=== PATIENT | male | born 1955 | race Asian ===

== ENCOUNTER 2018-05-10 17:09 | Inpatient (IN) | payer BC ==
[~2018-05-10] VITALS: Ht 162.6 cm; Wt 55.3 kg
[2018-05-10] MEDS ORDERED: Isovue-300 100ml vial INJ PRN (17:30)
[2018-05-10] MEDS ORDERED: Ketorolac 30mg Inj IV ONE (17:30)
[2018-05-10] MEDS ORDERED: Morphine Sulfate 4mg/ml Inj (IV USE ONLY) IVP ONE (17:30)
[2018-05-10 18:42] LABS: BASOPHILS % (AUTO) 1.1 % (0.0-2.0); EOSINOPHILS % (AUTO) 0.3 % (0.0-3.0); HEMATOCRIT 44.9 % (42.0-52.0); HEMOGLOBIN 15.5 G/DL (14.2-18.0); LYMPHOCYTES % (AUTO) 8.3 % (20.0-45.0); MEAN CORPUSCULAR VOLUME 92 FL (80-99); MONOCYTES % (AUTO) 6.8 % (1.0-10.0); NEUTROPHILS % (AUTO) 83.5 % (45.0-75.0); PLATELET COUNT 187 K/UL (150-450); RED BLOOD COUNT 4.89 M/UL (4.70-6.10); RED CELL DISTRIBUTION WIDTH 11.1 % (11.6-14.8); WHITE BLOOD COUNT 10.8 K/UL (4.8-10.8)
[2018-05-10 18:43] VITALS: BP 120/82
[2018-05-10 18:47] LABS: APPEARANCE,URINE CLEAR; BILIRUBIN, URINE NEGATIVE (NEGATIVE); COLOR,URINE PALE YELLOW; GLUCOSE, URINE (UA) 2+ (NEGATIVE); KETONES,URINE 2+ (NEGATIVE); LEUKOCYTE ESTERASE ,URINE 1+ (NEGATIVE); NITRITE,URINE NEGATIVE (NEGATIVE); PH,URINE 6.5 (4.5-8.0); PROTEIN,URINE NEGATIVE (NEGATIVE); UROBILINOGEN,URINE NORMAL MG/DL (0.0-1.0)
[2018-05-10 18:54] LABS: ANION GAP 8 mmol/L (5-15); BLOOD UREA NITROGEN 8 mg/dL (7-18); CALCIUM 8.8 MG/DL (8.5-10.1); CARBON DIOXIDE 27 MMOL/L (21-32); CHLORIDE 101 MMOL/L (98-107); CREATININE 0.9 MG/DL (0.55-1.30); POTASSIUM 3.8 MMOL/L (3.5-5.1); SODIUM 136 MMOL/L (136-145)
[2018-05-10 18:58] LABS: ALANINE AMINOTRANSFERASE 46 U/L (12-78); ALBUMIN 3.3 G/DL (3.4-5.0); ALBUMIN/GLOBULIN RATIO 0.8 (1.0-2.7); ALKALINE PHOSPHATASE 68 U/L (46-116); ASPARTATE AMINO TRANSFERASE 26 U/L (15-37)
--- NOTE | 2018-05-10 19:20 | Emergency Room Report ---
History of Present Illness General Chief Complaint: Abdominal Pain Source: Patient Present Illness HPI Patient presents with 3 days of lower abdominal pain. Initially thought it was diverticulitis and treated with Augmentin and Flagyl. The pain has been constant and worsening. He's felt nauseated and lack of appetite. He is also felt feverish. He's been taking Advil which is helped the pain somewhat. When he is not moving about the pain is somewhat controlled but otherwise its 8-9/ 10. It's more in the right lower quadrant and nonradiating. He denies any vomiting or diarrhea. There is no dysuria. The patient was seen by his own doctor and given a dose of IV Rocephin and gentamicin earlier today. The pain worsened. The doctor performed an ultrasound and said the patient had appendicitis. He was sent here for reevaluation. Allegedly WBC was 11K. Colonoscopy 6 years ago. No dyspnea. In past had palpitations related to ASD. Alleges some surgical procedure. No recent palpitations. No HATCH or anxiety. Allergies: Coded Allergies: No Known Allergies (Unverified , 05/10/18) Patient History Past Medical History: see triage record Past Surgical History: other - ASD surgery Social History: Denies: smoking, alcohol use, drug use Social History Narrative here with [facility] [place] [facility] employee Reviewed Nursing Documentation: PMH: Agreed; PSxH: Agreed Nursing Documentation-PMH Past Medical History: No History, Except For Hx Cardiac Problems: Yes - heart surgery(ASD) Hx COPD: Yes Review of Systems All Other Systems: negative except mentioned in HPI Physical Exam Vital Signs Date Time Temp Pulse Resp B/P (MAP) Pulse Ox O2 Delivery O2 Flow Rate FiO2 05/10/18 17:17 99.7 105 16 118/76 94 Room Air 99.7 Sp02 EP Interpretation: reviewed, normal General Appearance: well appearing, no apparent distress, GCS 15 Head: normocephalic, atraumatic Eyes: bilateral eye normal inspection, bilateral eye PERRL ENT: moist mucus membranes Neck: supple Respiratory: lungs clear, normal breath sounds Cardiovascular #1: regular rate, rhythm Cardiovascular #2: 2+ radial (R) Gastrointestinal: normal inspection, normal bowel sounds, no mass, non- distended, no rebound, guarding - RLQ, tenderness Genitourinary: no CVA tenderness Musculoskeletal: back normal, gait/station normal, normal range of motion Neurologic: alert, oriented x3, grossly normal Psychiatric: mood/affect normal Skin: normal inspection, warm/dry Medical Decision Making Diagnostic Impression: Primary Impression: Diverticulitis Additional Impressions: Failure of outpatient treatment COPD (chronic obstructive pulmonary disease) Qualified Codes: J44.9 - Chronic obstructive pulmonary disease, unspecified ASD (atrial septal defect) ER Course Patient with RLQ pain for 3 days. DDx: diverticulitis, appendicitis, colitis, UTI amongst others. Recent use of antibiotics stepped up to IV today with worsened pain. Told by PMD has appendicitis by ultrasound. History slightly against this. Needs evaluation with labs and CT. Treatment with IV hydration and analgesia. Had dose of rocephin and gent earlier today. Refused morphine because others told him it would be too strong. Requested tylenol also for headache. Labs with leukocytosis (by history slightly improved). Slightly elevated glucose. CT with colitis vs diverticulitis with stranding. No perf. Possible mass. Patient wants to sign out AMA. Discussion with family. Agree to stay after resolution regarding insurance (and warning by ERMD). Reported return of pain. Again refusing analgesia. Wants to eat. Discussed with Dr. Demarco for consult in AM. Admit med Dr. Shanks. Laboratory Tests Test 05/10/18 18:28 White Blood Count 10.8 K/UL (4.8-10.8) Red Blood Count 4.89 M/UL (4.70-6.10) Hemoglobin 15.5 G/DL (14.2-18.0) Hematocrit 44.9 % (42.0-52.0) Mean Corpuscular Volume 92 FL (80-99) Mean Corpuscular Hemoglobin 31.7 PG (27.0-31.0) H Mean Corpuscular Hemoglobin Concent 34.6 G/DL (32.0-36.0) Red Cell Distribution Width 11.1 % (11.6-14.8) L Platelet Count 187 K/UL (150-450) Mean Platelet Volume 5.7 FL (6.5-10.1) L Neutrophils (%) (Auto) 83.5 % (45.0-75.0) H Lymphocytes (%) (Auto) 8.3 % (20.0-45.0) L Monocytes (%) (Auto) 6.8 % (1.0-10.0) Eosinophils (%) (Auto) 0.3 % (0.0-3.0) Basophils (%) (Auto) 1.1 % (0.0-2.0) Prothrombin Time 10.3 SEC (9.30-11.50) Prothrombin Time INR 1.0 (0.9-1.1) PTT 33 SEC (23-33) Urine Color Pale yellow Urine Appearance Clear Urine pH 6.5 (4.5-8.0) Urine Specific [place] 1.005 (1.005-1.035) Urine Protein Negative (NEGATIVE) Urine Glucose (UA) 2+ (NEGATIVE) H Urine Ketones 2+ (NEGATIVE) H Urine Occult Blood Negative (NEGATIVE) Urine Nitrite Negative (NEGATIVE) Urine Bilirubin Negative (NEGATIVE) Urine Urobilinogen Normal MG/DL (0.0-1.0) Urine Leukocyte Esterase 1+ (NEGATIVE) H Urine RBC 0-2 /HPF (0 - 0) H Urine WBC 2-4 /HPF (0 - 0) Urine Squamous Epithelial Cells None /LPF (NONE/OCC) Urine Bacteria Few /HPF (NONE) Sodium Level 136 MMOL/L (136-145) Potassium Level 3.8 MMOL/L (3.5-5.1) Chloride Level 101 MMOL/L (98-107) Carbon Dioxide Level 27 MMOL/L (21-32) Anion Gap 8 mmol/L (5-15) Blood Urea Nitrogen 8 mg/dL (7-18) Creatinine 0.9 MG/DL (0.55-1.30) Estimate Glomerular Filtration Rate > 60 mL/min (>60) Glucose Level 126 MG/DL (74-106) H Calcium Level 8.8 MG/DL (8.5-10.1) Total Bilirubin 1.0 MG/DL (0.2-1.0) Aspartate Amino Transferase (AST) 26 U/L (15-37) Alanine Aminotransferase (ALT) 46 U/L (12-78) Alkaline Phosphatase 68 U/L (46-116) Troponin I 0.000 ng/mL (0.000-0.056) Total Protein 7.3 G/DL (6.4-8.2) Albumin 3.3 G/DL (3.4-5.0) L Globulin 4.0 g/dL Albumin/Globulin Ratio 0.8 (1.0-2.7) L Lipase 119 U/L (73-393) CT/MRI/US Diagnostic Results CT/MRI/US Diagnostic Results : Imaging Test Ordered: abd Impression colitis vs diverticulitis + stranding - COPD - possible mass Last Vital Signs Date Time Temp Pulse Resp B/P (MAP) Pulse Ox O2 Delivery O2 Flow Rate FiO2 05/10/18 23:02 97.9 72 20 112/63 (79) 96 97.9 05/10/18 22:48 Room Air Status: improved Disposition: HOME, SELF-CARE Condition: Serious Referrals: NON PHYSICIAN (PCP) Kobe Tanner M.D. May 10, 2018 19:20
[2018-05-10] MEDS ORDERED: BREO ELLIPTA 21 EACH IH (19:31)
[2018-05-10 20:33] VITALS: BP 108/62
[2018-05-10 22:14] VITALS: BP 125/79
[2018-05-10 23:02] VITALS: BP 112/63
[2018-05-11] MEDS ORDERED: Morphine Sulfate 2mg/ml Inj(IV/IM USE ONLY) IVP PRN ×2 (01:30→07:15)
[2018-05-11] MEDS ORDERED: D5 1/2NS 1,000 ML IV SCH ×2 (02:00→08:00)
[2018-05-11 04:00] VITALS: BP 112/64
[2018-05-11] MEDS ORDERED: Nitroglycerin Subl 0.4mg tab SL PRN (07:15)
[2018-05-11] MEDS ORDERED: Mylanta II UD 30ml ORAL PRN (07:15)
[2018-05-11] MEDS ORDERED: LORazepam Inj 2mg/ml 1ml IV PRN (07:15)
[2018-05-11] MEDS ORDERED: Metoclopramide 10mg/2ml Inj IVP PRN (07:15)
[2018-05-11] MEDS ORDERED: Miralax 17gm pkt ORAL PRN (07:15)
[2018-05-11] MEDS ORDERED: Promethazine HCl 12.5 MG in NS 55 ML IV PRN (07:15)
[2018-05-11 07:44] LABS: BASOPHILS % (AUTO) 0.3 % (0.0-2.0); EOSINOPHILS % (AUTO) 1.8 % (0.0-3.0); HEMATOCRIT 39.9 % (42.0-52.0); HEMOGLOBIN 13.9 G/DL (14.2-18.0); LYMPHOCYTES % (AUTO) 9.7 % (20.0-45.0); MEAN CORPUSCULAR VOLUME 91 FL (80-99); MONOCYTES % (AUTO) 7.4 % (1.0-10.0); NEUTROPHILS % (AUTO) 80.8 % (45.0-75.0); PLATELET COUNT 171 K/UL (150-450); RED CELL DISTRIBUTION WIDTH 10.7 % (11.6-14.8); WHITE BLOOD COUNT 7.6 K/UL (4.8-10.8)
[2018-05-11 07:54] LABS: ANION GAP 9 mmol/L (5-15); BLOOD UREA NITROGEN 7 mg/dL (7-18); CALCIUM 8.6 MG/DL (8.5-10.1); CARBON DIOXIDE 24 MMOL/L (21-32); CHLORIDE 106 MMOL/L (98-107); CREATININE 0.8 MG/DL (0.55-1.30); POTASSIUM 3.3 MMOL/L (3.5-5.1); SODIUM 139 MMOL/L (136-145)
[2018-05-11 08:00] VITALS: BP 111/60
--- NOTE | 2018-05-11 08:13 | Consultation ---
History of Present Illness General Date patient seen: May 11, 2018 Chief Complaint: Abdominal Pain Reason for Consultation: Diverticulitis Present Illness HPI Mr. Hidalgo is a 62 yo male with PMHx of ASD repair, and COPD who presented with 3 days of abdominal pain. The pain is located in [facility] RLU. He had some diarrhea last night after drinking contrast but this has resolved. He was seen by his own MD and was started on Augmentin and flagyl but the patient was not getting better so he was sent to the ED. Prior to coming to the ED he was given Ceftriaxone and Gentamycin. He apparently had a leukocytosis of 11 and he says he felt feverish. Now he reports the pain is in his RLQ is almost gone. He has had no sick contacts. Last travel was to [place] 1 year ago. he did not get sick on this trip. In the ED he had a CT scan that apparently showed diverticulitis and possible colitis. I talked to the radiologist and he told me that the report is pending but while there is some inflammation the is no district diverticula. The patient has been afebrile and had a mild leukocytosis 10.8 which had decreased to 7.6. PMHx/PSHx Chronic Bronchitis ASD - S/P Repair SocHx Denies E/T/D FamHx No GI Cancer Allergies: Coded Allergies: No Known Allergies (Unverified , 05/10/18) Medication History Miscellaneous Medications Fluticasone/Vilanterol (Breo Ellipta 200-25 Mcg INH), 1 EACH IH, (Reported) Patient History Healthcare decision maker Resuscitation status Full Code Advanced Directive on File No Review of Systems All Other Systems: negative except mentioned in HPI Physical Exam Last 24 Hour Vital Signs Date Time Temp Pulse Resp B/P (MAP) Pulse Ox O2 Delivery O2 Flow Rate FiO2 05/11/18 04:00 98.8 73 20 112/64 (80) 95 98.8 05/10/18 23:02 97.9 72 20 112/63 (79) 96 97.9 05/10/18 22:48 Room Air 05/10/18 22:14 98.7 81 15 125/79 99 Room Air 98.7 05/10/18 20:33 98.7 77 16 108/62 99 Room Air 98.7 05/10/18 18:43 98.7 89 16 120/82 94 Room Air 98.7 05/10/18 18:00 98.7 05/10/18 17:30 99.7 05/10/18 17:30 99.7 05/10/18 17:17 99.7 105 16 118/76 94 Room Air 99.7 Intake and Output 05/10/18 05/11/18 19:00 07:00 Intake Total 2340 ml Balance 2340 ml Intake IV Total 2340 ml # Voids 1 3 # Bowel Movements 1 Laboratory Tests Test 05/10/18 18:28 05/11/18 06:40 White Blood Count 10.8 K/UL (4.8-10.8) 7.6 K/UL (4.8-10.8) Red Blood Count 4.89 M/UL (4.70-6.10) 4.40 M/UL (4.70-6.10) L Hemoglobin 15.5 G/DL (14.2-18.0) 13.9 G/DL (14.2-18.0) L Hematocrit 44.9 % (42.0-52.0) 39.9 % (42.0-52.0) L Mean Corpuscular Volume 92 FL (80-99) 91 FL (80-99) Mean Corpuscular Hemoglobin 31.7 PG (27.0-31.0) H 31.6 PG (27.0-31.0) H Mean Corpuscular Hemoglobin Concent 34.6 G/DL (32.0-36.0) 34.8 G/DL (32.0-36.0) Red Cell Distribution Width 11.1 % (11.6-14.8) L 10.7 % (11.6-14.8) L Platelet Count 187 K/UL (150-450) 171 K/UL (150-450) Mean Platelet Volume 5.7 FL (6.5-10.1) L 6.3 FL (6.5-10.1) L Neutrophils (%) (Auto) 83.5 % (45.0-75.0) H 80.8 % (45.0-75.0) H Lymphocytes (%) (Auto) 8.3 % (20.0-45.0) L 9.7 % (20.0-45.0) L Monocytes (%) (Auto) 6.8 % (1.0-10.0) 7.4 % (1.0-10.0) Eosinophils (%) (Auto) 0.3 % (0.0-3.0) 1.8 % (0.0-3.0) Basophils (%) (Auto) 1.1 % (0.0-2.0) 0.3 % (0.0-2.0) Prothrombin Time 10.3 SEC (9.30-11.50) Prothromb Time International Ratio 1.0 (0.9-1.1) Activated Partial Thromboplast Time 33 SEC (23-33) Urine Color Pale yellow Urine Appearance Clear Urine pH 6.5 (4.5-8.0) Urine Specific [place] 1.005 (1.005-1.035) Urine Protein Negative (NEGATIVE) Urine Glucose (UA) 2+ (NEGATIVE) H Urine Ketones 2+ (NEGATIVE) H Urine Occult Blood Negative (NEGATIVE) Urine Nitrite Negative (NEGATIVE) Urine Bilirubin Negative (NEGATIVE) Urine Urobilinogen Normal MG/DL (0.0-1.0) Urine Leukocyte Esterase 1+ (NEGATIVE) H Urine RBC 0-2 /HPF (0 - 0) H Urine WBC 2-4 /HPF (0 - 0) Urine Squamous Epithelial Cells None /LPF (NONE/OCC) Urine Bacteria Few /HPF (NONE) Sodium Level 136 MMOL/L (136-145) 139 MMOL/L (136-145) Potassium Level 3.8 MMOL/L (3.5-5.1) 3.3 MMOL/L (3.5-5.1) L Chloride Level 101 MMOL/L (98-107) 106 MMOL/L (98-107) Carbon Dioxide Level 27 MMOL/L (21-32) 24 MMOL/L (21-32) Anion Gap 8 mmol/L (5-15) 9 mmol/L (5-15) Blood Urea Nitrogen 8 mg/dL (7-18) 7 mg/dL (7-18) Creatinine 0.9 MG/DL (0.55-1.30) 0.8 MG/DL (0.55-1.30) Estimat Glomerular Filtration Rate > 60 mL/min (>60) > 60 mL/min (>60) Glucose Level 126 MG/DL (74-106) H 111 MG/DL (74-106) H Calcium Level 8.8 MG/DL (8.5-10.1) 8.6 MG/DL (8.5-10.1) Total Bilirubin 1.0 MG/DL (0.2-1.0) Aspartate Amino Transf (AST/SGOT) 26 U/L (15-37) Alanine Aminotransferase (ALT/SGPT) 46 U/L (12-78) Alkaline Phosphatase 68 U/L (46-116) Troponin I 0.000 ng/mL (0.000-0.056) Total Protein 7.3 G/DL (6.4-8.2) Albumin 3.3 G/DL (3.4-5.0) L Globulin 4.0 g/dL Albumin/Globulin Ratio 0.8 (1.0-2.7) L Lipase 119 U/L (73-393) Height (Feet): 5 Height (Inches): 4.00 Weight (Pounds): 122 Medications Current Medications Medications (Trade) Dose Ordered Sig/Rosa Route PRN Reason Start Time Stop Time Status Last Admin Dose Admin Acetaminophen (Tylenol) 650 mg Q4H PRN ORAL fever 05/11/18 07:15 06/10/18 07:14 UNV Al Hydroxide/Mg Hydroxide (Mylanta II) 30 ml Q6H PRN ORAL dyspepsia 05/11/18 07:15 06/10/18 07:14 UNV Barium Sulfate (Readi-Cat 2) 450 ml NOW PRN ORAL Radiology Procedure 05/10/18 17:30 05/12/18 17:25 Dextrose (Dextrose 50%) STAT PRN IV Hypoglycemia 05/11/18 07:15 06/10/18 07:14 UNV Dextrose/Sodium Chloride 1,000 ml @ 60 mls/hr [id number] IV 05/11/18 02:00 06/10/18 01:59 05/11/18 02:34 Dextrose/Sodium Chloride 1,000 ml @ 75 mls/hr [id number] IV 05/11/18 07:08 06/10/18 07:07 UNV Diphenhydramine HCl (Benadryl) 25 mg Q6H PRN ORAL Itching/Pruritis 05/11/18 07:15 06/10/18 07:14 UNV Heparin Sodium (Porcine) (Heparin 5000 units/ml) 5,000 units EVERY 12 HOURS SUBQ 05/11/18 09:00 06/10/18 08:59 UNV Iopamidol (Isovue-300 100ml) 100 ml NOW PRN INJ Radiology Procedure 05/10/18 17:30 Lorazepam (Ativan 2mg/ml 1ml) 1 mg EVERY 4 HOURS PRN IV agitation 05/11/18 07:15 05/18/18 07:14 UNV Metoclopramide HCl (Reglan) 10 mg EVERY 6 HOURS PRN IVP servere nauasea 05/11/18 07:15 06/10/18 07:14 UNV Morphine Sulfate (Morphine Sulfate) 2 mg EVERY 4 HOURS PRN IVP severe Pain (Pain Scale 7-10) 05/11/18 07:15 05/18/18 07:14 UNV Morphine Sulfate (Morphine Sulfate) 2 mg Q4H PRN IVP For Pain 05/11/18 01:30 05/18/18 01:29 Nitroglycerin (Ntg) 0.4 mg Q5M X 3 DOSES PRN SL Prn Chest Pain 05/11/18 07:15 06/10/18 07:14 UNV Ondansetron HCl (Zofran) 4 mg Q6H PRN IVP Nausea & Vomiting 05/11/18 07:15 06/10/18 07:14 UNV Pantoprazole (Protonix) 40 mg DAILY IV 05/11/18 09:00 06/10/18 08:59 UNV Polyethylene Glycol (Miralax) 17 gm HSPRN PRN ORAL Constipation 05/11/18 07:15 06/10/18 07:14 UNV Promethazine HCl 12.5 mg/Sodium Chloride 55.5 ml @ 110 mls/hr Q6H PRN IV Refractory N/V 05/11/18 07:15 06/10/18 07:14 UNV Promethazine HCl 25 mg/Sodium Chloride 56 ml @ 110 mls/hr Q6H PRN IV Refractory N/V 05/11/18 07:15 06/10/18 07:14 UNV Temazepam (Restoril) 15 mg HSPRN PRN ORAL Insomnia 05/11/18 07:15 05/18/18 07:14 UNV Objective Narrative Gen: NAD, well appearing, alert HEENT: NCAT, MMM, EOMI, PERRL, No Oral lesion, no scleral icterus NECK: full range of motion, supple, no meningismus, No LAD, No JVD LUNGS: CTAB, No W/C, No Accessory muscle use CARDS: RRR, S1, S2, No M/R/G,~ ABD: Soft, TTP RLQ with deep palpation, ND, No R/G, + BS, No HSM, No Masses Ext: C/C/E, Pulses 2+ B/L (DP, Rad): : Deferred NEURO: A/O x 4, Strength and Sensation Grossly intact PSYCH: mood/affect normal SKIN: warm/dry, No rashes Assessment/Plan Assessment/Plan 62 yo male with PMHx of ASD repair, and COPD who presented with 3 days of abdominal pain, diarrhea and nausea (no vomiting). #Abdominal Pain Likely CA vs colitis - Pain and mild leukocytosis responded to IV Abx - CT 05/10/18 - CA vs colitis PLAN: - Will start course of Abx for possible colitis with Ciprofloxacin as he had increased WBCs and fever with colitis. - Would treat for 7 days with Ciprofloxacin 500mg BID. End date 05/17/18 - Reasonable to D/C the patient from and ID perspective - Stool studies - Would recommend work up of Cancer given CT results - Supportive care Thank you for consulting us for the care of this patient. We will continue to follow with you. Kobe Woodward M.D. May 11, 2018 08:13
[2018-05-11] MEDS: Heparin 5000 units/ml inj SUBQ SCH ×3 (09:00→20:35)
[2018-05-11] MEDS: Pantoprazole Inj IV SCH (09:03)
[2018-05-11] MEDS ORDERED: Promethazine HCl 25 MG in NS 55 ML IV PRN (10:00)
--- NOTE | 2018-05-11 10:36 | Diagnostic Imaging Report ---
Indication: Chest pain Technique: One view of the chest Comparison: none Findings: Retrocardiac opacity likely reflects bronchiectatic changes demonstrated on recent CT scan. There is mild thoracic scoliotic deformity. The heart is enlarged. The remainder of the lungs and pleural spaces are clear. Impression: Left retrocardiac opacity, likely reflecting bronchiectatic changes seen on recent CT Cardiomegaly No definite acute process
--- NOTE | 2018-05-11 11:43 | Diagnostic Imaging Report ---
Clinical Indication: Right lower quadrant abdominal pain x3 days Technique: Patient given oral contrast. IV administration nonionic contrast. Venous phase spiral acquisition obtained through the abdomen and pelvis. Multiplanar reconstructions were generated. Total dose length product 506.67 mGycm. CTDIvol(s) 10.18 mGy. Dose reduction achieved using automated exposure control Comparison: none Findings: The appendix is normal. There is wall thickening of the proximal ascending colon as well as to a slight extent the terminal ileum, with considerable infiltration of the pericolonic fat. Prominent lymph nodes are seen in the vicinity. No definite diverticulosis is demonstrated. No small bowel distention. No free or loculated intraperitoneal gas or fluid is evident. The distal esophagus, stomach, duodenum are unremarkable. The liver demonstrates scattered subcentimeter low-attenuation lesions which are too small to characterize. The gallbladder, bile ducts, pancreas, spleen, adrenals are unremarkable. The kidneys demonstrate bilateral cysts, as well as subcentimeter low-attenuation lesions which are too small to characterize. The bladder is distended. The prostate is somewhat prominent. The lung bases demonstrate considerable bronchiectasis at the left lung base. The heart is mildly enlarged. Scarring and atelectasis is seen at the right lung base. The bones demonstrate mild anterior wedging of the T12 vertebral body Impression: Wall thickening of the proximal ascending colon and possibly the terminal ileum, considerable infiltration of the pericolonic fat and prominent regional lymph nodes. This could indicate focal inflammatory colitis, either infectious or noninfectious, or diverticulitis due to an occult diverticulum. Alternatively, findings could represent colonic neoplasm. Follow-up CT after resolution of acute process or endoscopy should be considered Cardiomegaly Left basilar pulmonary bronchiectasis Mild anterior wedging of the T12 vertebral body. This may be developmental or could indicate a compression fracture of indeterminate age Subcentimeter low-attenuation liver lesions, too small to characterize Bilateral renal cysts. Bilateral subcentimeter renal low-attenuation lesions which are too small to characterize This agrees with the preliminary interpretation provided overnight by [facility] teleradiology service. Findings also discussed by phone with Dr. Woodward at 1137 on 05/21/[address] scanner at [facility] is accredited by the [employer] and the scans are performed using protocols designed to limit radiation exposure to as low as reasonably achievable to attain images of sufficient resolution adequate for diagnostic evaluation.
[2018-05-11 12:00] VITALS: BP 132/63
[2018-05-11] MEDS ORDERED: Ciprofloxacin 500mg tab ORAL SCH (12:00)
[2018-05-11] MEDS ORDERED: cefTRIAXone 1 GM in D5W 55 ML IVPB ONE (12:15)
--- NOTE | 2018-05-11 12:45 | Diagnostic Imaging Report ---
Indication: Right lower quadrant abdominal pain, nausea, anorexia Technique: Cornelius-scale and duplex images of the upper abdomen were obtained Comparison: Reference made to CT scan 05/10/2018 Findings: Gallbladder is unremarkable, without stones, wall thickening, nor pericholecystic fluid. Sonographic Jeong's sign is negative. Common bile duct measures 5 mm in diameter. No intrahepatic biliary ductal dilatation. Liver demonstrates normal echogenicity, no focal abnormality. Portal vein and hepatic veins are patent. Pancreas is unremarkable. Spleen is unremarkable. Left kidney measures 10.8 cm in length. Right kidney measures 12.6 cm length. Both kidneys demonstrate normal echogenicity. There is no hydronephrosis. There are bilateral renal cysts . There is what appears to be a possible solid mass at the upper pole of the left kidney. However, this is probably artifactual as recent CT demonstrates normal parenchyma and a tiny 3 mm cyst in this area. Non-aneurysmal abdominal aorta . Impression: Negative for gallstones or dilated ducts Bilateral renal cysts
[2018-05-11] MEDS: Piperacillin/Tazobactam 3.375 GM in D5W 110 ML IV SCH ×2 (13:34→20:35)
[2018-05-11] MEDS: D5 1/2NS 1,000 ML IV SCH ×2 (13:34→23:30)
[2018-05-11] MEDS ORDERED: Piperacillin/Tazobactam 3.375 GM in NS 110 ML IVPB SCH (14:00)
--- NOTE | 2018-05-11 15:12 | Consultation ---
History of Present Illness General Date patient seen: May 11, 2018 Chief Complaint: Abdominal Pain Reason for Consultation: Diverticulitis Present Illness HPI 62 year old male with hx of COPD, ASD presented to ER with CC of 3 days of lower abdominal pain. The pain has been constant and worsening. He's felt nauseated and lack of appetite. He is also felt feverish. It's more in the right lower quadrant and nonradiating. He denies any vomiting or diarrhea. He had a CT of abdomen in ER showing colitis. He is admitted to medical floor for further evaluation. Allergies: Coded Allergies: No Known Allergies (Unverified , 05/10/18) Medication History Miscellaneous Medications Fluticasone/Vilanterol (Breo Ellipta 200-25 Mcg INH), 1 EACH IH, (Reported) Patient History Healthcare decision maker Resuscitation status Full Code Advanced Directive on File No Past Medical/Surgical History Past Medical/Surgical History: (1) ASD (atrial septal defect) (2) COPD (chronic obstructive pulmonary disease) Review of Systems All Other Systems: negative except mentioned in HPI Physical Exam General Appearance: WD/WN, no apparent distress Lines, tubes and drains: peripheral HEENT: normocephalic, atraumatic Neck: non-tender, normal alignment Respiratory/Chest: chest wall non-tender, lungs clear Cardiovascular/Chest: normal rate Abdomen: normal bowel sounds, non tender Genitourinary/Rectal: normal genital exam, normal rectal exam Extremities: normal range of motion Skin Exam: normal pigmentation 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 normal Last 24 Hour Vital Signs Date Time Temp Pulse Resp B/P (MAP) Pulse Ox O2 Delivery O2 Flow Rate FiO2 05/11/18 12:00 98.9 75 21 132/63 (86) 98 98.9 05/11/18 08:15 Room Air 05/11/18 08:00 98.1 80 20 111/60 (77) 97 98.1 05/11/18 04:00 98.8 73 20 112/64 (80) 95 98.8 05/10/18 23:02 97.9 72 20 112/63 (79) 96 97.9 05/10/18 22:48 Room Air 05/10/18 22:23 98.7 81 15 125/79 99 Room Air 98.7 05/10/18 22:14 98.7 81 15 125/79 99 Room Air 98.7 05/10/18 20:33 98.7 77 16 108/62 99 Room Air 98.7 05/10/18 18:43 98.7 89 16 120/82 94 Room Air 98.7 05/10/18 18:00 98.7 05/10/18 17:30 99.7 05/10/18 17:30 99.7 05/10/18 17:17 99.7 105 16 118/76 94 Room Air 99.7 Intake and Output 05/10/18 05/11/18 19:00 07:00 Intake Total 2340 ml Balance 2340 ml Intake IV Total 2340 ml # Voids 1 3 # Bowel Movements 1 Laboratory Tests Test 05/10/18 18:28 05/11/18 06:40 White Blood Count 10.8 K/UL (4.8-10.8) 7.6 K/UL (4.8-10.8) Red Blood Count 4.89 M/UL (4.70-6.10) 4.40 M/UL (4.70-6.10) L Hemoglobin 15.5 G/DL (14.2-18.0) 13.9 G/DL (14.2-18.0) L Hematocrit 44.9 % (42.0-52.0) 39.9 % (42.0-52.0) L Mean Corpuscular Volume 92 FL (80-99) 91 FL (80-99) Mean Corpuscular Hemoglobin 31.7 PG (27.0-31.0) H 31.6 PG (27.0-31.0) H Mean Corpuscular Hemoglobin Concent 34.6 G/DL (32.0-36.0) 34.8 G/DL (32.0-36.0) Red Cell Distribution Width 11.1 % (11.6-14.8) L 10.7 % (11.6-14.8) L Platelet Count 187 K/UL (150-450) 171 K/UL (150-450) Mean Platelet Volume 5.7 FL (6.5-10.1) L 6.3 FL (6.5-10.1) L Neutrophils (%) (Auto) 83.5 % (45.0-75.0) H 80.8 % (45.0-75.0) H Lymphocytes (%) (Auto) 8.3 % (20.0-45.0) L 9.7 % (20.0-45.0) L Monocytes (%) (Auto) 6.8 % (1.0-10.0) 7.4 % (1.0-10.0) Eosinophils (%) (Auto) 0.3 % (0.0-3.0) 1.8 % (0.0-3.0) Basophils (%) (Auto) 1.1 % (0.0-2.0) 0.3 % (0.0-2.0) Prothrombin Time 10.3 SEC (9.30-11.50) Prothromb Time International Ratio 1.0 (0.9-1.1) Activated Partial Thromboplast Time 33 SEC (23-33) Urine Color Pale yellow Urine Appearance Clear Urine pH 6.5 (4.5-8.0) Urine Specific [place] 1.005 (1.005-1.035) Urine Protein Negative (NEGATIVE) Urine Glucose (UA) 2+ (NEGATIVE) H Urine Ketones 2+ (NEGATIVE) H Urine Occult Blood Negative (NEGATIVE) Urine Nitrite Negative (NEGATIVE) Urine Bilirubin Negative (NEGATIVE) Urine Urobilinogen Normal MG/DL (0.0-1.0) Urine Leukocyte Esterase 1+ (NEGATIVE) H Urine RBC 0-2 /HPF (0 - 0) H Urine WBC 2-4 /HPF (0 - 0) Urine Squamous Epithelial Cells None /LPF (NONE/OCC) Urine Bacteria Few /HPF (NONE) Sodium Level 136 MMOL/L (136-145) 139 MMOL/L (136-145) Potassium Level 3.8 MMOL/L (3.5-5.1) 3.3 MMOL/L (3.5-5.1) L Chloride Level 101 MMOL/L (98-107) 106 MMOL/L (98-107) Carbon Dioxide Level 27 MMOL/L (21-32) 24 MMOL/L (21-32) Anion Gap 8 mmol/L (5-15) 9 mmol/L (5-15) Blood Urea Nitrogen 8 mg/dL (7-18) 7 mg/dL (7-18) Creatinine 0.9 MG/DL (0.55-1.30) 0.8 MG/DL (0.55-1.30) Estimat Glomerular Filtration Rate > 60 mL/min (>60) > 60 mL/min (>60) Glucose Level 126 MG/DL (74-106) H 111 MG/DL (74-106) H Calcium Level 8.8 MG/DL (8.5-10.1) 8.6 MG/DL (8.5-10.1) Total Bilirubin 1.0 MG/DL (0.2-1.0) Aspartate Amino Transf (AST/SGOT) 26 U/L (15-37) Alanine Aminotransferase (ALT/SGPT) 46 U/L (12-78) Alkaline Phosphatase 68 U/L (46-116) Troponin I 0.000 ng/mL (0.000-0.056) Total Protein 7.3 G/DL (6.4-8.2) Albumin 3.3 G/DL (3.4-5.0) L Globulin 4.0 g/dL Albumin/Globulin Ratio 0.8 (1.0-2.7) L Lipase 119 U/L (73-393) Height (Feet): 5 Height (Inches): 4.00 Weight (Pounds): 122 Medications Current Medications Medications (Trade) Dose Ordered Sig/Rosa Route PRN Reason Start Time Stop Time Status Last Admin Dose Admin Acetaminophen (Tylenol) 650 mg Q4H PRN ORAL fever 05/11/18 07:15 06/10/18 07:14 Dextrose (Dextrose 50%) 25 ml STAT PRN IV Hypoglycemia 05/11/18 07:15 06/10/18 07:14 Dextrose (Dextrose 50%) 50 ml STAT PRN IV Hypoglycemia 05/11/18 08:30 06/10/18 08:29 Dextrose/Sodium Chloride 1,000 ml @ 100 mls/hr Q10H IV 05/11/18 13:30 06/10/18 13:29 05/11/18 13:34 Diphenhydramine HCl (Benadryl) 25 mg Q6H PRN ORAL Itching/Pruritis 05/11/18 07:15 06/10/18 07:14 Heparin Sodium (Porcine) (Heparin 5000 units/ml) 5,000 units EVERY 12 HOURS SUBQ 05/11/18 09:00 06/10/18 08:59 Lorazepam (Ativan 2mg/ml 1ml) 1 mg EVERY 4 HOURS PRN IV agitation 05/11/18 07:15 05/18/18 07:14 Morphine Sulfate (Morphine Sulfate) 2 mg EVERY 4 HOURS PRN IVP severe Pain (Pain Scale 7-10) 05/11/18 07:15 05/18/18 07:14 Nitroglycerin (Ntg) 0.4 mg Q5M X 3 DOSES PRN SL Prn Chest Pain 05/11/18 07:15 06/10/18 07:14 Ondansetron HCl (Zofran) 4 mg Q6H PRN IVP Nausea & Vomiting 05/11/18 07:15 06/10/18 07:14 Pantoprazole (Protonix) 40 mg DAILY IV 05/11/18 09:00 06/10/18 08:59 05/11/18 09:03 Piperacillin Sod/ Tazobactam Sod 3.375 gm/Dextrose 110 ml @ 27.5 mls/hr EVERY 8 HOURS IV 05/11/18 14:00 05/16/18 13:59 05/11/18 13:34 Polyethylene Glycol (Miralax) 17 gm HSPRN PRN ORAL Constipation 05/11/18 07:15 06/10/18 07:14 Promethazine HCl 25 mg/Sodium Chloride 56 ml @ 110 mls/hr Q6H PRN IV Refractory N/V 05/11/18 10:00 06/10/18 09:59 Temazepam (Restoril) 15 mg HSPRN PRN ORAL Insomnia 05/11/18 21:00 05/18/18 20:59 Assessment/Plan Problem List: (1) colitis (2) Failure of outpatient treatment ICD Codes: Z78.9 - Other specified health status SNOMED: 097259099 (3) COPD (chronic obstructive pulmonary disease) ICD Codes: J44.9 - Chronic obstructive pulmonary disease, unspecified SNOMED: 19611398 (4) ASD (atrial septal defect) ICD Codes: Q21.1 - Atrial septal defect SNOMED: 47596392 Assessment/Plan NPO IV fluids stool for C-diff check wbc check electrolytes symptomatic treatment Indio Lobo MD May 11, 2018 15:12
--- NOTE | 2018-05-11 15:30 | Consultation ---
History of Present Illness General Date patient seen: May 11, 2018 Chief Complaint: Abdominal Pain Reason for Consultation: Diverticulitis Present Illness HPI 62 year old male otherwise healthy presented to ED with complaints of worsening abdominal pain. States pain started 3 days ago and was initially vague generalized pain which has since localized to right lower and mid abdominal as cramping pain. Pain described as 6-8/10 without radiation. Associated nausea but no emesis. Feels constipated since onset. Came to ED for evaluation since pain not improving. No similar symptoms prior. Last colonoscopy 6 years ago and benign polyps removed. In ED had CT which demonstrated right sided colitis. Surgery called to evaluate. patient seen, chart reviewed, patient examined. Allergies: Coded Allergies: No Known Allergies (Unverified , 05/10/18) Medication History Miscellaneous Medications Fluticasone/Vilanterol (Breo Ellipta 200-25 Mcg INH), 1 EACH IH, (Reported) Patient History History Provided By: Patient, Medical Record, PMD Healthcare decision maker Resuscitation status Full Code Advanced Directive on File No Past Medical/Surgical History Past Medical/Surgical History: (1) Failure of outpatient treatment (2) Diverticulitis (3) COPD (chronic obstructive pulmonary disease) (4) ASD (atrial septal defect) (5) colitis Review of Systems Constitutional: Denies: no symptoms, see HPI, chills, sweats, fever, malaise, weakness, other Eye: Denies: no symptoms, see HPI, eye pain, blurred vision, tearing, double vision, nose pain, nose congestion, acuity changes, discharge, other ENT: Denies: no symptoms, see HPI, ear pain, ear discharge, nose pain, nose congestion, throat pain, throat swelling, mouth pain, hearing loss, nasal discharge, other Respiratory: Denies: no symptoms, see HPI, cough, orthopnea, shortness of breath, stridor, wheezing, [place], sputum, other Gastrointestinal: Reports: abdominal pain, constipation Genitourinary: Denies: no symptoms, see HPI, discharge, dysuria, frequency, hematuria, pain, retention, incontinence, urgency, vag bleed/dc, other Musculoskeletal: Denies: no symptoms, see HPI, back pain, gout, joint pain, joint swelling, muscle pain, muscle stiffness, other Skin: Denies: no symptoms, see HPI, rash, change in color, change in hair/nails , dryness, lesions, other Psychiatric: Denies: no symptoms, see HPI, prior hx, anxiety, depressed feelings, emotional problems, SI, HI, hallucinations, other Neurological: Denies: no symptoms, see HPI, headache, numbness, paresthesia, seizure, tingling, tremors, focal weakness, syncope, dizziness, other Endocrine: Denies: no symptoms, see HPI, excessive sweating, flushing, intolerance to temperature, increased thirst, increased urine, unexplained weight loss, other Hematologic/Lymphatic: Denies: no symptoms, see HPI, anemia, blood clots, easy bleeding, easy bruising, swollen glands, diathesis, other Physical Exam General Appearance: no apparent distress, alert Lines, tubes and drains: peripheral HEENT: normocephalic, atraumatic, mucous membranes moist, PERRL Neck: supple, normal inspection Respiratory/Chest: lungs clear, normal breath sounds, no respiratory distress, no accessory muscle use Cardiovascular/Chest: normal peripheral pulses, normal rate Abdomen: normal bowel sounds, soft, no organomegaly, no mass, guarding, rebound , tender Extremities: non-tender, normal inspection, no calf tenderness Skin Exam: normal pigmentation, warm/dry Neurologic: alert, oriented x 3 Last 24 Hour Vital Signs Date Time Temp Pulse Resp B/P (MAP) Pulse Ox O2 Delivery O2 Flow Rate FiO2 05/11/18 12:00 98.9 75 21 132/63 (86) 98 98.9 05/11/18 08:15 Room Air 05/11/18 08:00 98.1 80 20 111/60 (77) 97 98.1 05/11/18 04:00 98.8 73 20 112/64 (80) 95 98.8 05/10/18 23:02 97.9 72 20 112/63 (79) 96 97.9 05/10/18 22:48 Room Air 05/10/18 22:23 98.7 81 15 125/79 99 Room Air 98.7 05/10/18 22:14 98.7 81 15 125/79 99 Room Air 98.7 05/10/18 20:33 98.7 77 16 108/62 99 Room Air 98.7 05/10/18 18:43 98.7 89 16 120/82 94 Room Air 98.7 8/8/18 18:00 98.7 05/10/18 17:30 99.7 05/10/18 17:30 99.7 05/10/18 17:17 99.7 105 16 118/76 94 Room Air 99.7 Intake and Output 05/10/18 05/11/18 19:00 07:00 Intake Total 2340 ml Balance 2340 ml Intake IV Total 2340 ml # Voids 1 3 # Bowel Movements 1 Laboratory Tests Test 05/10/18 18:28 05/11/18 06:40 White Blood Count 10.8 K/UL (4.8-10.8) 7.6 K/UL (4.8-10.8) Red Blood Count 4.89 M/UL (4.70-6.10) 4.40 M/UL (4.70-6.10) L Hemoglobin 15.5 G/DL (14.2-18.0) 13.9 G/DL (14.2-18.0) L Hematocrit 44.9 % (42.0-52.0) 39.9 % (42.0-52.0) L Mean Corpuscular Volume 92 FL (80-99) 91 FL (80-99) Mean Corpuscular Hemoglobin 31.7 PG (27.0-31.0) H 31.6 PG (27.0-31.0) H Mean Corpuscular Hemoglobin Concent 34.6 G/DL (32.0-36.0) 34.8 G/DL (32.0-36.0) Red Cell Distribution Width 11.1 % (11.6-14.8) L 10.7 % (11.6-14.8) L Platelet Count 187 K/UL (150-450) 171 K/UL (150-450) Mean Platelet Volume 5.7 FL (6.5-10.1) L 6.3 FL (6.5-10.1) L Neutrophils (%) (Auto) 83.5 % (45.0-75.0) H 80.8 % (45.0-75.0) H Lymphocytes (%) (Auto) 8.3 % (20.0-45.0) L 9.7 % (20.0-45.0) L Monocytes (%) (Auto) 6.8 % (1.0-10.0) 7.4 % (1.0-10.0) Eosinophils (%) (Auto) 0.3 % (0.0-3.0) 1.8 % (0.0-3.0) Basophils (%) (Auto) 1.1 % (0.0-2.0) 0.3 % (0.0-2.0) Prothrombin Time 10.3 SEC (9.30-11.50) Prothromb Time International Ratio 1.0 (0.9-1.1) Activated Partial Thromboplast Time 33 SEC (23-33) Urine Color Pale yellow Urine Appearance Clear Urine pH 6.5 (4.5-8.0) Urine Specific [place] 1.005 (1.005-1.035) Urine Protein Negative (NEGATIVE) Urine Glucose (UA) 2+ (NEGATIVE) H Urine Ketones 2+ (NEGATIVE) H Urine Occult Blood Negative (NEGATIVE) Urine Nitrite Negative (NEGATIVE) Urine Bilirubin Negative (NEGATIVE) Urine Urobilinogen Normal MG/DL (0.0-1.0) Urine Leukocyte Esterase 1+ (NEGATIVE) H Urine RBC 0-2 /HPF (0 - 0) H Urine WBC 2-4 /HPF (0 - 0) Urine Squamous Epithelial Cells None /LPF (NONE/OCC) Urine Bacteria Few /HPF (NONE) Sodium Level 136 MMOL/L (136-145) 139 MMOL/L (136-145) Potassium Level 3.8 MMOL/L (3.5-5.1) 3.3 MMOL/L (3.5-5.1) L Chloride Level 101 MMOL/L (98-107) 106 MMOL/L (98-107) Carbon Dioxide Level 27 MMOL/L (21-32) 24 MMOL/L (21-32) Anion Gap 8 mmol/L (5-15) 9 mmol/L (5-15) Blood Urea Nitrogen 8 mg/dL (7-18) 7 mg/dL (7-18) Creatinine 0.9 MG/DL (0.55-1.30) 0.8 MG/DL (0.55-1.30) Estimat Glomerular Filtration Rate > 60 mL/min (>60) > 60 mL/min (>60) Glucose Level 126 MG/DL (74-106) H 111 MG/DL (74-106) H Calcium Level 8.8 MG/DL (8.5-10.1) 8.6 MG/DL (8.5-10.1) Total Bilirubin 1.0 MG/DL (0.2-1.0) Aspartate Amino Transf (AST/SGOT) 26 U/L (15-37) Alanine Aminotransferase (ALT/SGPT) 46 U/L (12-78) Alkaline Phosphatase 68 U/L (46-116) Troponin I 0.000 ng/mL (0.000-0.056) Total Protein 7.3 G/DL (6.4-8.2) Albumin 3.3 G/DL (3.4-5.0) L Globulin 4.0 g/dL Albumin/Globulin Ratio 0.8 (1.0-2.7) L Lipase 119 U/L (73-393) Height (Feet): 5 Height (Inches): 4.00 Weight (Pounds): 122 Medications Current Medications Medications (Trade) Dose Ordered Sig/Rosa Route PRN Reason Start Time Stop Time Status Last Admin Dose Admin Acetaminophen (Tylenol) 650 mg Q4H PRN ORAL fever 05/11/18 07:15 06/10/18 07:14 Dextrose (Dextrose 50%) 25 ml STAT PRN IV Hypoglycemia 05/11/18 07:15 06/10/18 07:14 Dextrose (Dextrose 50%) 50 ml STAT PRN IV Hypoglycemia 05/11/18 08:30 06/10/18 08:29 Dextrose/Sodium Chloride 1,000 ml @ 100 mls/hr Q10H IV 05/11/18 13:30 06/10/18 13:29 05/11/18 13:34 Diphenhydramine HCl (Benadryl) 25 mg Q6H PRN ORAL Itching/Pruritis 05/11/18 07:15 06/10/18 07:14 Heparin Sodium (Porcine) (Heparin 5000 units/ml) 5,000 units EVERY 12 HOURS SUBQ 05/11/18 09:00 06/10/18 08:59 Lorazepam (Ativan 2mg/ml 1ml) 1 mg EVERY 4 HOURS PRN IV agitation 05/11/18 07:15 05/18/18 07:14 Morphine Sulfate (Morphine Sulfate) 2 mg EVERY 4 HOURS PRN IVP severe Pain (Pain Scale 7-10) 05/11/18 07:15 05/18/18 07:14 Nitroglycerin (Ntg) 0.4 mg Q5M X 3 DOSES PRN SL Prn Chest Pain 05/11/18 07:15 06/10/18 07:14 Ondansetron HCl (Zofran) 4 mg Q6H PRN IVP Nausea & Vomiting 05/11/18 07:15 06/10/18 07:14 Pantoprazole (Protonix) 40 mg DAILY IV 05/11/18 09:00 06/10/18 08:59 05/11/18 09:03 Piperacillin Sod/ Tazobactam Sod 3.375 gm/Dextrose 110 ml @ 27.5 mls/hr EVERY 8 HOURS IV 05/11/18 14:00 05/16/18 13:59 05/11/18 13:34 Polyethylene Glycol (Miralax) 17 gm HSPRN PRN ORAL Constipation 05/11/18 07:15 06/10/18 07:14 Promethazine HCl 25 mg/Sodium Chloride 56 ml @ 110 mls/hr Q6H PRN IV Refractory N/V 05/11/18 10:00 06/10/18 09:59 Temazepam (Restoril) 15 mg HSPRN PRN ORAL Insomnia 05/11/18 21:00 05/18/18 20:59 Assessment/Plan Problem List: (1) Acute colitis Assessment & Plan: 62M Acute Right sided Colitis. Afebrile, HD stable, labs okay. Exam with right sided abdominal pain, rebound, guarding. CT reviewed and though uncomplicated the extent of colitis is concerning for right sided colitis. possible mass? given exam and CT findings patient should be kept npo with iv fluids and iv abx. need to ensure exam improves and pain resolves prior to starting a diet. NPO IV fluids IV Abx bowel rest until pain improved will follow with serial exams may consider colonoscopy to r/o mass. will discuss with GI once pain resolved. thank you for this consultation . will follow with recs. ICD Codes: K52.9 - Noninfective gastroenteritis and colitis, unspecified SNOMED: 77953375, [id number] Status: stable Aris Demarcoya May 11, 2018 15:30
[2018-05-11 15:51] VITALS: BP 126/68
--- NOTE | 2018-05-11 17:45 | Consultation ---
DATE OF CONSULTATION: 05/11/2018 GASTROENTEROLOGY CONSULTATION CONSULTING PHYSICIAN: Ciro Chanel M.D. REFERRING PHYSICIAN: Jose D Shanks D.O. CHIEF COMPLAINT: Abdominal pain. HISTORY OF PRESENT ILLNESS: This is a very pleasant 62-year-old Turkish male with past medical history of chronic bronchitis, history of cardiac surgery for ASD, who presented to the hospital with 3 days' worth of abdominal pain mostly in the right lower quadrant with fevers and chills at home. Apparently, he was seen by PMD, was given antibiotics without significant improvement, came to the ER yesterday which CT showed evidence of right-sided questionable colitis versus mass with associated lymphadenopathy concerning for malignancy and GI consultation was requested for further evaluation. The patient complains of nausea, but no vomiting. No dysphagia. No odynophagia. No melena. No hematochezia. No significant weight loss. Past colonoscopy was 6 years ago and the patient was told that he had some polyps. PAST MEDICAL HISTORY: 1. History of chronic bronchitis. 2. Cardiac surgery for ASD. ALLERGIES: No known drug allergies. MEDICATIONS: Please see medication reconciliation list. SOCIAL HISTORY: There is no recent history of alcohol or IV drug abuse. FAMILY HISTORY: Noncontributory. REVIEW OF SYSTEMS: A 10-point review of systems was performed and pertinent positives in HPI. PHYSICAL EXAMINATION: GENERAL: A well-developed male in no acute distress. VITAL SIGNS: Temperature is 98.9, pulse is 75, respirations 21, blood pressure is 132/63. HEENT: Normocephalic and atraumatic. Sclerae anicteric. NECK: Supple. No evidence of lymphadenopathy. CARDIOVASCULAR: Regular rate and rhythm. Plus S1 and S2. No obvious murmur. There is a scar in the midline from prior cardiac surgeries. ABDOMEN: Bowel sounds were present, hypoactive. Soft. There is some tenderness to palpation in the right lower quadrant. No rebound. No guarding. No peritoneal sign. EXTREMITIES: No cyanosis, no clubbing, no edema. LABORATORY DATA: White count 7.6, hemoglobin 13, hematocrit 39, platelet count is 171,000. Chem-7, sodium 139, potassium 3.3, BUN 7, creatinine 0.8, glucose 111. ASSESSMENT AND PLAN: This is a 62-year-old male with right-sided colitis versus mass. We had a long discussion with radiologist and with the family. Radiologist was concerning and leaning toward more being a malignancy than just simple infection. Family to have a colonoscopy. I offered him to have a colonoscopy tomorrow as an inpatient, but he wants to get antibiotics and have the pain improvement before agreeing to have a colonoscopy. The surgeon is also on the case who is following this. Also, ID is on the case and ordering antibiotics. Plan will be to continue monitoring, repeat laboratories for tomorrow, order CEA, and of course, antibiotics per ID. We will continue talking to the family and the patient for possibility of the inpatient colonoscopy if he agrees. I would like to thank Dr. Jose D Shanks for this kind referral. Ciro Chanel M.D. DR: Manny JOB#: [id number] CC: Jose D Shanks D.O.
[2018-05-11 20:00] VITALS: BP 125/80
--- NOTE | 2018-05-11 21:45 | History and Physical Report ---
DATE OF ADMISSION: 05/10/2018 TIME: 1 p.m. CONSULTANTS: 1. Ind[place] Lobo M.D. 2. Alfred Elliott M.D. 3. Ciro Chanel M.D. 4. Carlos Demarco M.D. CHIEF COMPLAINT: Abdominal pain, diverticulitis. BRIEF HISTORY: The patient is a 62-year-old male, who lives at home, presents with 3 days increased abdominal pain. No nausea or vomiting. Diarrhea x1 day, came to [facility], diagnosed with abdominal pain and diverticulitis, admitted to medical floor for further treatment. Currently, calm in bed, slight abdominal discomfort. No complaint. PAST MEDICAL HISTORY: Nothing. PAST SURGICAL HISTORY: ASD heart surgery. MEDICATIONS: Restoril, Zosyn, potassium, promethazine, pantoprazole, IV fluid, morphine and Zofran. ALLERGIES: Denies. SOCIAL HISTORY: No smoking. No alcohol. No intravenous drug abuse. FAMILY HISTORY: Noncontributory. REVIEW OF SYSTEMS: No chest pain. No shortness of breath. No nausea or vomiting. Slight diarrhea. PHYSICAL EXAMINATION: GENERAL: Calm in bed, oriented x3, no acute distress. VITAL SIGNS: Temperature is 98 degrees, pulse 95, respirations 21, and blood pressure 132/63. CARDIOVASCULAR: No murmur. LUNGS: Distant. ABDOMEN: Bowel sound positive. Nontender and nondistended. EXTREMITIES: No cyanosis, clubbing or edema. NEUROLOGIC: The patient moves all extremities, slightly weak. LABORATORY AND DIAGNOSTIC DATA: CBC is normal. BMP shows potassium 3.3, glucose 111, otherwise BMP is normal. INR is 1.0 and PTT is 33. Urinalysis, 1+ leukocyte esterase. ASSESSMENT: 1. Abdominal pain. 2. Diverticulitis. 3. UTI. 4. Diarrhea. PLAN: 1. Continue previous medications. 2. Pain control. 3. NPO. 4. IV fluids. 5. Advance diet as tolerated. 6. Antibiotics per Infectious Disease. 7. CBC and BMP in the morning. Jose D Shanks D.O. DR: NICOL JOB#: [id number] CC:
[2018-05-12 04:00] VITALS: BP 110/68
[2018-05-12] MEDS: Piperacillin/Tazobactam 3.375 GM in D5W 110 ML IV SCH ×3 (04:28→22:03)
[2018-05-12 06:23] LABS: BASOPHILS % (AUTO) 0.5 % (0.0-2.0); EOSINOPHILS % (AUTO) 1.9 % (0.0-3.0); HEMATOCRIT 41.9 % (42.0-52.0); HEMOGLOBIN 14.4 G/DL (14.2-18.0); LYMPHOCYTES % (AUTO) 8.2 % (20.0-45.0); MEAN CORPUSCULAR VOLUME 91 FL (80-99); NEUTROPHILS % (AUTO) 80.5 % (45.0-75.0); PLATELET COUNT 191 K/UL (150-450); RED BLOOD COUNT 4.61 M/UL (4.70-6.10); RED CELL DISTRIBUTION WIDTH 10.5 % (11.6-14.8); WHITE BLOOD COUNT 7.4 K/UL (4.8-10.8)
[2018-05-12 06:37] LABS: ALANINE AMINOTRANSFERASE 29 U/L (12-78); ALBUMIN 2.8 G/DL (3.4-5.0); ALBUMIN/GLOBULIN RATIO 0.8 (1.0-2.7); ALKALINE PHOSPHATASE 59 U/L (46-116); AMYLASE 36 U/L (25-115); ANION GAP 9 mmol/L (5-15); ASPARTATE AMINO TRANSFERASE 18 U/L (15-37); BILIRUBIN,TOTAL 0.9 MG/DL (0.2-1.0); BLOOD UREA NITROGEN 6 mg/dL (7-18); CALCIUM 8.5 MG/DL (8.5-10.1); CARBON DIOXIDE 26 MMOL/L (21-32); CHLORIDE 104 MMOL/L (98-107); CREATININE 0.9 MG/DL (0.55-1.30); POTASSIUM 3.3 MMOL/L (3.5-5.1); SODIUM 139 MMOL/L (136-145)
[2018-05-12 08:00] VITALS: BP 114/72
[2018-05-12] MEDS: Heparin 5000 units/ml inj SUBQ SCH ×2 (08:40→21:00)
[2018-05-12] MEDS: D5 1/2NS 1,000 ML IV SCH ×3 (08:46→13:28)
[2018-05-12] MEDS: Pantoprazole Inj IV SCH (08:46)
--- NOTE | 2018-05-12 09:31 | Infectious Diseases Prog Note ---
Assessment/Plan Assessment/Plan 62 yo male with PMHx of ASD repair, and COPD who presented with 3 days of abdominal pain, diarrhea and nausea (no vomiting). #Abdominal Pain - Colonic inflammation Likely CA vs colitis - Pain and mild leukocytosis responded to IV Abx - CT 05/10/18 - CA vs colitis - Possible colonoscopy as in patient pending improvement of symptoms #Rash - resolving - [place] heat rash or friction/contact rash PLAN: - Will continue IV Zosyn #2 for colitis with Ciprofloxacin as he had increased WBCs and fever with colitis. - Stool studies - Monitor symptoms for any sign of worsening colitis - f/u any colonoscopy - Supportive care Thank you for consulting us for the care of this patient. We will continue to follow with you. Subjective Allergies: Coded Allergies: No Known Allergies (Unverified , 05/10/18) Subjective Patient reports abdominal pain improved. Patient reports rash on legs improving No N/V/D or fever Objective Vital Signs Last 24 Hour Vital Signs Date Time Temp Pulse Resp B/P (MAP) Pulse Ox O2 Delivery O2 Flow Rate FiO2 05/12/18 04:00 98.8 89 19 110/68 (82) 98 98.8 05/11/18 20:05 Room Air 05/11/18 20:00 99.0 83 19 125/80 (95) 100 99.0 05/11/18 15:51 98.3 89 19 126/68 (87) 96 98.3 05/11/18 12:00 98.9 75 21 132/63 (86) 98 98.9 Height (Feet): 5 Height (Inches): 4.00 Weight (Pounds): 122 Objective Gen: NAD, well appearing, alert HEENT: NCAT, MMM, EOMI, No Oral lesion, no scleral icterus LUNGS: CTAB, No W/C, No Accessory muscle use CARDS: RRR, S1, S2, No M/R/G,~ ABD: Soft, TTP RLQ with deep palpation, ND, No R/G, + BS, No HSM, No Masses Ext: C/C/E, Pulses 2+ B/L (DP, Rad): NEURO: A/O x 4, Strength and Sensation Grossly intact Skin: Macular rash on upper thights B/L - Looks like heat or friction rash. Is present only on skin covered by his boxer shorts Microbiology Date/Time Source Procedure Growth Status 05/12/18 06:45 Stool Received Laboratory Tests Test 05/12/18 05:25 White Blood Count 7.4 K/UL (4.8-10.8) Red Blood Count 4.61 M/UL (4.70-6.10) L Hemoglobin 14.4 G/DL (14.2-18.0) Hematocrit 41.9 % (42.0-52.0) L Mean Corpuscular Volume 91 FL (80-99) Mean Corpuscular Hemoglobin 31.2 PG (27.0-31.0) H Mean Corpuscular Hemoglobin Concent 34.4 G/DL (32.0-36.0) Red Cell Distribution Width 10.5 % (11.6-14.8) L Platelet Count 191 K/UL (150-450) Mean Platelet Volume 6.0 FL (6.5-10.1) L Neutrophils (%) (Auto) 80.5 % (45.0-75.0) H Lymphocytes (%) (Auto) 8.2 % (20.0-45.0) L Monocytes (%) (Auto) 9.0 % (1.0-10.0) Eosinophils (%) (Auto) 1.9 % (0.0-3.0) Basophils (%) (Auto) 0.5 % (0.0-2.0) Activated Partial Thromboplast Time 34 SEC (23-33) H Sodium Level 139 MMOL/L (136-145) Potassium Level 3.3 MMOL/L (3.5-5.1) L Chloride Level 104 MMOL/L (98-107) Carbon Dioxide Level 26 MMOL/L (21-32) Anion Gap 9 mmol/L (5-15) Blood Urea Nitrogen 6 mg/dL (7-18) L Creatinine 0.9 MG/DL (0.55-1.30) Estimat Glomerular Filtration Rate > 60 mL/min (>60) Glucose Level 119 MG/DL (74-106) H Calcium Level 8.5 MG/DL (8.5-10.1) Total Bilirubin 0.9 MG/DL (0.2-1.0) Aspartate Amino Transf (AST/SGOT) 18 U/L (15-37) Alanine Aminotransferase (ALT/SGPT) 29 U/L (12-78) Alkaline Phosphatase 59 U/L (46-116) Total Protein 6.4 G/DL (6.4-8.2) Albumin 2.8 G/DL (3.4-5.0) L Globulin 3.6 g/dL Albumin/Globulin Ratio 0.8 (1.0-2.7) L Amylase Level 36 U/L (25-115) Lipase 111 U/L (73-393) Carcinoembryonic Antigen Pending Current Medications Medications (Trade) Dose Ordered Sig/Rosa Route PRN Reason Start Time Stop Time Status Last Admin Dose Admin Acetaminophen (Tylenol) 650 mg Q4H PRN ORAL fever 05/11/18 07:15 06/10/18 07:14 Dextrose (Dextrose 50%) 25 ml STAT PRN IV Hypoglycemia 05/11/18 07:15 06/10/18 07:14 Dextrose (Dextrose 50%) 50 ml STAT PRN IV Hypoglycemia 05/11/18 08:30 06/10/18 08:29 Dextrose/Sodium Chloride 1,000 ml @ 100 mls/hr Q10H IV 05/11/18 13:30 06/10/18 13:29 05/11/18 13:34 Diphenhydramine HCl (Benadryl) 25 mg Q6H PRN ORAL Itching/Pruritis 05/11/18 07:15 06/10/18 07:14 Heparin Sodium (Porcine) (Heparin 5000 units/ml) 5,000 units EVERY 12 HOURS SUBQ 05/11/18 09:00 06/10/18 08:59 Lorazepam (Ativan 2mg/ml 1ml) 1 mg EVERY 4 HOURS PRN IV agitation 05/11/18 07:15 05/18/18 07:14 Morphine Sulfate (Morphine Sulfate) 2 mg EVERY 4 HOURS PRN IVP severe Pain (Pain Scale 7-10) 05/11/18 07:15 05/18/18 07:14 Nitroglycerin (Ntg) 0.4 mg Q5M X 3 DOSES PRN SL Prn Chest Pain 05/11/18 07:15 06/10/18 07:14 Ondansetron HCl (Zofran) 4 mg Q6H PRN IVP Nausea & Vomiting 05/11/18 07:15 06/10/18 07:14 Pantoprazole (Protonix) 40 mg DAILY IV 05/11/18 09:00 06/10/18 08:59 05/12/18 08:46 Piperacillin Sod/ Tazobactam Sod 3.375 gm/Dextrose 110 ml @ 27.5 mls/hr EVERY 8 HOURS IV 05/11/18 14:00 05/16/18 13:59 05/12/18 04:28 Polyethylene Glycol (Miralax) 17 gm HSPRN PRN ORAL Constipation 05/11/18 07:15 06/10/18 07:14 Promethazine HCl 25 mg/Sodium Chloride 56 ml @ 110 mls/hr Q6H PRN IV Refractory N/V 05/11/18 10:00 06/10/18 09:59 Temazepam (Restoril) 15 mg HSPRN PRN ORAL Insomnia 05/11/18 21:00 05/18/18 20:59 Kobe Woodward M.D. May 12, 2018 09:31
--- NOTE | 2018-05-12 10:08 | General Progress Note ---
Assessment/Plan Problem List: (1) Chronic bronchitis ICD Codes: J42 - Unspecified chronic bronchitis SNOMED: 17925615 (2) colitis (3) ASD (atrial septal defect) ICD Codes: Q21.1 - Atrial septal defect SNOMED: 90916956 Assessment/Plan abx pain control stool studies advance diet plan colonoscopy on Tuesday Subjective ROS Limited/Unobtainable: Yes Allergies: Coded Allergies: No Known Allergies (Unverified , 05/10/18) Subjective abd pain better but cristofer 4/10 loose stools Objective Last 24 Hour Vital Signs Date Time Temp Pulse Resp B/P (MAP) Pulse Ox O2 Delivery O2 Flow Rate FiO2 05/12/18 04:00 98.8 89 19 110/68 (82) 98 98.8 05/11/18 20:05 Room Air 05/11/18 20:00 99.0 83 19 125/80 (95) 100 99.0 05/11/18 15:51 98.3 89 19 126/68 (87) 96 98.3 05/11/18 12:00 98.9 75 21 132/63 (86) 98 98.9 Intake and Output 05/11/18 05/12/18 19:00 07:00 Intake Total 570 ml 765.0 ml Balance 570 ml 765.0 ml Intake IV Total 570 ml 765.0 ml # Voids 3 3 # Bowel Movements 1 Laboratory Tests 05/12/18 05:25: White Blood Count 7.4, Red Blood Count 4.61L, Hemoglobin 14.4, Hematocrit 41.9L , Mean Corpuscular Volume 91, Mean Corpuscular Hemoglobin 31.2H, Mean Corpuscular Hemoglobin Concent 34.4, Red Cell Distribution Width 10.5L, Platelet Count 191, Mean Platelet Volume 6.0L, Neutrophils (%) (Auto) 80.5H, Lymphocytes (%) (Auto) 8.2L, Monocytes (%) (Auto) 9.0, Eosinophils (%) (Auto) 1.9, Basophils (%) (Auto) 0.5, Activated Partial Thromboplast Time 34H, Sodium Level 139, Potassium Level 3.3L, Chloride Level 104, Carbon Dioxide Level 26, Anion Gap 9, Blood Urea Nitrogen 6L, Creatinine 0.9, Estimat Glomerular Filtration Rate > 60, Glucose Level 119H, Calcium Level 8.5, Total Bilirubin 0.9 , Aspartate Amino Transf (AST/SGOT) 18, Alanine Aminotransferase (ALT/SGPT) 29, Alkaline Phosphatase 59, Total Protein 6.4, Albumin 2.8L, Globulin 3.6, Albumin/ Globulin Ratio 0.8L, Amylase Level 36, Lipase 111, Carcinoembryonic Antigen [ Pending] Height (Feet): 5 Height (Inches): 4.00 Weight (Pounds): 122 General Appearance: alert EENT: normal ENT inspection Neck: supple Cardiovascular: normal rate Respiratory/Chest: decreased breath sounds Abdomen: soft, hypoactive bowel sounds, tender Extremities: non-tender Ciro Chanel MD May 12, 2018 10:08
--- NOTE | 2018-05-12 11:15 | General Progress Note ---
Assessment/Plan Problem List: (1) Abdominal pain ICD Codes: R10.9 - Unspecified abdominal pain SNOMED: 13205374 (2) UTI (urinary tract infection) ICD Codes: N39.0 - Urinary tract infection, site not specified SNOMED: 43014231 (3) Groin rash ICD Codes: R21 - Rash and other nonspecific skin eruption SNOMED: 420896201, 577402419 (4) Acute colitis ICD Codes: K52.9 - Noninfective gastroenteritis and colitis, unspecified SNOMED: 04395221, 240846646 (5) Diverticulitis ICD Codes: K57.92 - Diverticulitis of intestine, part unspecified, without perforation or abscess without bleeding SNOMED: 759370823 Status: unchanged Assessment/Plan abx per id gi eval pain control cbc bmp am Subjective Constitutional: Reports: weakness Allergies: Coded Allergies: No Known Allergies (Unverified , 05/10/18) All Systems: reviewed and negative except above Subjective sl r abd pain Objective Last 24 Hour Vital Signs Date Time Temp Pulse Resp B/P (MAP) Pulse Ox O2 Delivery O2 Flow Rate FiO2 05/12/18 08:00 98.4 95 20 114/72 (86) 97 98.4 05/12/18 04:00 98.8 89 19 110/68 (82) 98 98.8 05/11/18 20:05 Room Air 05/11/18 20:00 99.0 83 19 125/80 (95) 100 99.0 05/11/18 15:51 98.3 89 19 126/68 (87) 96 98.3 05/11/18 12:00 98.9 75 21 132/63 (86) 98 98.9 Intake and Output 05/11/18 05/12/18 19:00 07:00 Intake Total 570 ml 765.0 ml Balance 570 ml 765.0 ml Intake IV Total 570 ml 765.0 ml # Voids 3 3 # Bowel Movements 1 Laboratory Tests 05/12/18 05:25: White Blood Count 7.4, Red Blood Count 4.61L, Hemoglobin 14.4, Hematocrit 41.9L , Mean Corpuscular Volume 91, Mean Corpuscular Hemoglobin 31.2H, Mean Corpuscular Hemoglobin Concent 34.4, Red Cell Distribution Width 10.5L, Platelet Count 191, Mean Platelet Volume 6.0L, Neutrophils (%) (Auto) 80.5H, Lymphocytes (%) (Auto) 8.2L, Monocytes (%) (Auto) 9.0, Eosinophils (%) (Auto) 1.9, Basophils (%) (Auto) 0.5, Activated Partial Thromboplast Time 34H, Sodium Level 139, Potassium Level 3.3L, Chloride Level 104, Carbon Dioxide Level 26, Anion Gap 9, Blood Urea Nitrogen 6L, Creatinine 0.9, Estimat Glomerular Filtration Rate > 60, Glucose Level 119H, Calcium Level 8.5, Total Bilirubin 0.9 , Aspartate Amino Transf (AST/SGOT) 18, Alanine Aminotransferase (ALT/SGPT) 29, Alkaline Phosphatase 59, Total Protein 6.4, Albumin 2.8L, Globulin 3.6, Albumin/ Globulin Ratio 0.8L, Amylase Level 36, Lipase 111, Carcinoembryonic Antigen [ Pending] Height (Feet): 5 Height (Inches): 4.00 Weight (Pounds): 122 General Appearance: alert EENT: normal ENT inspection Neck: normal alignment Cardiovascular: normal peripheral pulses, normal rate, regular rhythm Respiratory/Chest: chest wall non-tender, lungs clear, normal breath sounds Abdomen: normal bowel sounds, non tender, soft Extremities: normal inspection Edema: no edema noted Arm (L), no edema noted Arm (R), no edema noted Leg (L), no edema noted Leg (R), no edema noted Pedal (L), no edema noted Pedal (R), no edema noted Generalized Neurologic: responsive, motor weakness Skin: warm/dry Objective sl b/l inguinal punctate rash Jose D Shanks DO May 12, 2018 11:15
[2018-05-12 12:00] VITALS: BP 127/82
--- NOTE | 2018-05-12 12:15 | General Surgery Progress Note ---
General Surgery-Progress Note Subjective Symptoms: improved, passing flatus Additional Comments no acute events. pain improved and only mild. no n/v/f/c. Objective Last 24 Hour Vital Signs Date Time Temp Pulse Resp B/P (MAP) Pulse Ox O2 Delivery O2 Flow Rate FiO2 05/12/18 08:30 Room Air 05/12/18 08:00 98.4 95 20 114/72 (86) 97 98.4 05/12/18 04:00 98.8 89 19 110/68 (82) 98 98.8 05/11/18 20:05 Room Air 05/11/18 20:00 99.0 83 19 125/80 (95) 100 99.0 05/11/18 15:51 98.3 89 19 126/68 (87) 96 98.3 I&O Intake and Output 05/11/18 05/12/18 19:00 07:00 Intake Total 570 ml 765.0 ml Balance 570 ml 765.0 ml Intake IV Total 570 ml 765.0 ml # Voids 3 3 # Bowel Movements 1 Drains: none Cardiovascular: RSR Respiratory: clear Abdomen: soft, flat, non-tender, tenderness - mild Right abdominal tenderness , present bowel sounds Extremities: no edema, no tenderness, no cyanosis Laboratory Tests Test 05/12/18 05:25 White Blood Count 7.4 K/UL (4.8-10.8) Red Blood Count 4.61 M/UL (4.70-6.10) L Hemoglobin 14.4 G/DL (14.2-18.0) Hematocrit 41.9 % (42.0-52.0) L Mean Corpuscular Volume 91 FL (80-99) Mean Corpuscular Hemoglobin 31.2 PG (27.0-31.0) H Mean Corpuscular Hemoglobin Concent 34.4 G/DL (32.0-36.0) Red Cell Distribution Width 10.5 % (11.6-14.8) L Platelet Count 191 K/UL (150-450) Mean Platelet Volume 6.0 FL (6.5-10.1) L Neutrophils (%) (Auto) 80.5 % (45.0-75.0) H Lymphocytes (%) (Auto) 8.2 % (20.0-45.0) L Monocytes (%) (Auto) 9.0 % (1.0-10.0) Eosinophils (%) (Auto) 1.9 % (0.0-3.0) Basophils (%) (Auto) 0.5 % (0.0-2.0) Activated Partial Thromboplast Time 34 SEC (23-33) H Sodium Level 139 MMOL/L (136-145) Potassium Level 3.3 MMOL/L (3.5-5.1) L Chloride Level 104 MMOL/L (98-107) Carbon Dioxide Level 26 MMOL/L (21-32) Anion Gap 9 mmol/L (5-15) Blood Urea Nitrogen 6 mg/dL (7-18) L Creatinine 0.9 MG/DL (0.55-1.30) Estimat Glomerular Filtration Rate > 60 mL/min (>60) Glucose Level 119 MG/DL (74-106) H Calcium Level 8.5 MG/DL (8.5-10.1) Total Bilirubin 0.9 MG/DL (0.2-1.0) Aspartate Amino Transf (AST/SGOT) 18 U/L (15-37) Alanine Aminotransferase (ALT/SGPT) 29 U/L (12-78) Alkaline Phosphatase 59 U/L (46-116) Total Protein 6.4 G/DL (6.4-8.2) Albumin 2.8 G/DL (3.4-5.0) L Globulin 3.6 g/dL Albumin/Globulin Ratio 0.8 (1.0-2.7) L Amylase Level 36 U/L (25-115) Lipase 111 U/L (73-393) Carcinoembryonic Antigen Pending Plan Problems: (1) Acute colitis Assessment & Plan: 62M Acute Right sided Colitis. Afebrile, HD stable, labs okay. Exam with right sided abdominal pain, rebound, guarding. CT reviewed and though uncomplicated the extent of colitis is concerning for right sided colitis. possible mass? given exam and CT findings patient should be kept npo with iv fluids and iv abx. need to ensure exam improves and pain resolves prior to starting a diet. improving with IV abx. -full liquid diet today IV Abx will follow with serial exams colonoscopy Tuesday thank you for this consultation . will follow with recs. Carlos Demarco May 12, 2018 12:15
--- NOTE | 2018-05-12 13:45 | Cardiology Report ---
APPROVED REPORT EKG Measurement Heart [id number] NC [id number] Normal sinus rhythm Possible Left atrial enlargement Incomplete RBBB Abnormal ECG
[2018-05-12 16:00] VITALS: BP 119/76
[2018-05-12 20:00] VITALS: BP 108/77
[2018-05-13] VITALS: BP 101/56
[2018-05-13 04:00] VITALS: BP 133/78
[2018-05-13] MEDS: Piperacillin/Tazobactam 3.375 GM in D5W 110 ML IV SCH (05:39)
[2018-05-13 06:18] LABS: BASOPHILS % (AUTO) 0.7 % (0.0-2.0); EOSINOPHILS % (AUTO) 3.7 % (0.0-3.0); HEMATOCRIT 40.7 % (42.0-52.0); HEMOGLOBIN 14.5 G/DL (14.2-18.0); LYMPHOCYTES % (AUTO) 9.4 % (20.0-45.0); MEAN CORPUSCULAR VOLUME 91 FL (80-99); MONOCYTES % (AUTO) 9.8 % (1.0-10.0); NEUTROPHILS % (AUTO) 76.4 % (45.0-75.0); PLATELET COUNT 203 K/UL (150-450); RED BLOOD COUNT 4.49 M/UL (4.70-6.10); RED CELL DISTRIBUTION WIDTH 10.2 % (11.6-14.8); WHITE BLOOD COUNT 6.9 K/UL (4.8-10.8)
[2018-05-13 06:42] LABS: ANION GAP 6 mmol/L (5-15); BLOOD UREA NITROGEN 4 mg/dL (7-18); CARBON DIOXIDE 28 MMOL/L (21-32); CHLORIDE 106 MMOL/L (98-107); POTASSIUM 3.5 MMOL/L (3.5-5.1); SODIUM 140 MMOL/L (136-145)
[2018-05-13 08:00] VITALS: BP 112/73
[2018-05-13] MEDS: Pantoprazole Inj IV SCH (08:12)
[2018-05-13] MEDS: Heparin 5000 units/ml inj SUBQ SCH (08:15)
[2018-05-13] MEDS: D5 1/2NS 1,000 ML IV SCH (08:15)
--- NOTE | 2018-05-13 08:24 | Infectious Diseases Prog Note ---
Assessment/Plan Assessment/Plan 62 yo male with PMHx of ASD repair, and COPD who presented with 3 days of abdominal pain, diarrhea and nausea (no vomiting). #Abdominal Pain - Colonic inflammation Likely CA vs colitis - Pain and mild leukocytosis responded to IV Abx - CT 05/10/18 - CA vs colitis - Possible colonoscopy as in patient pending improvement of symptoms #Rash - resolving - likley heat rash or friction/contact rash PLAN: - Will continue IV Zosyn #3 for colitis as he had increased WBCs and fever with colitis. - On D/C can switch to PO Ciprofloxacin as he had increased WBCs and fever with colitis. - Would treat for 10 days total treatment with Ciprofloxacin 500mg BID. End date 05/19/18 - Monitor symptoms for any sign of worsening colitis - f/u any colonoscopy to r/o CA - Supportive care - Patient would like to go home. Agree with discharge with strict return precautions. Thank you for consulting us for the care of this patient. We will continue to follow with you. Subjective Allergies: Coded Allergies: No Known Allergies (Unverified , 05/10/18) Subjective Patient reports abdominal pain essentially resolved No N/V/D or fever Objective Vital Signs Last 24 Hour Vital Signs Date Time Temp Pulse Resp B/P (MAP) Pulse Ox O2 Delivery O2 Flow Rate FiO2 05/13/18 04:00 98.6 90 19 133/78 (96) 99 98.6 05/13/18 00:00 98.4 68 19 101/56 (71) 99 98.4 05/12/18 21:00 Room Air 05/12/18 20:00 97.2 80 19 108/77 (87) 96 97.2 05/12/18 16:00 98.7 80 20 119/76 (90) 97 98.7 05/12/18 12:00 98.7 80 18 127/82 (97) 98 98.7 05/12/18 08:30 Room Air Height (Feet): 5 Height (Inches): 4.00 Weight (Pounds): 122 Objective Gen: NAD, well appearing, alert HEENT: NCAT, MMM, EOMI, No Oral lesion, no scleral icterus LUNGS: CTAB, No W/C, No Accessory muscle use CARDS: RRR, S1, S2, No M/R/G,~ ABD: Soft, TTP RLQ with deep palpation, ND, No R/G, + BS, No HSM, No Masses Ext: C/C/E, Pulses 2+ B/L (DP, Rad): NEURO: A/O x 4, Strength and Sensation Grossly intact Skin: Macular rash on upper thights B/L - resolving - Looks like heat or friction rash. Is present only on skin covered by his boxer shorts Microbiology Date/Time Source Procedure Growth Status 05/12/18 06:45 Stool Clostridium difficile Toxin Assay - Final Complete Laboratory Tests Test 05/13/18 05:35 White Blood Count 6.9 K/UL (4.8-10.8) Red Blood Count 4.49 M/UL (4.70-6.10) L Hemoglobin 14.5 G/DL (14.2-18.0) Hematocrit 40.7 % (42.0-52.0) L Mean Corpuscular Volume 91 FL (80-99) Mean Corpuscular Hemoglobin 32.3 PG (27.0-31.0) H Mean Corpuscular Hemoglobin Concent 35.6 G/DL (32.0-36.0) Red Cell Distribution Width 10.2 % (11.6-14.8) L Platelet Count 203 K/UL (150-450) Mean Platelet Volume 5.9 FL (6.5-10.1) L Neutrophils (%) (Auto) 76.4 % (45.0-75.0) H Lymphocytes (%) (Auto) 9.4 % (20.0-45.0) L Monocytes (%) (Auto) 9.8 % (1.0-10.0) Eosinophils (%) (Auto) 3.7 % (0.0-3.0) H Basophils (%) (Auto) 0.7 % (0.0-2.0) Sodium Level 140 MMOL/L (136-145) Potassium Level 3.5 MMOL/L (3.5-5.1) Chloride Level 106 MMOL/L (98-107) Carbon Dioxide Level 28 MMOL/L (21-32) Anion Gap 6 mmol/L (5-15) Blood Urea Nitrogen 4 mg/dL (7-18) L Creatinine 1.0 MG/DL (0.55-1.30) Estimat Glomerular Filtration Rate > 60 mL/min (>60) Glucose Level 117 MG/DL (74-106) H Calcium Level 9.0 MG/DL (8.5-10.1) Current Medications Medications (Trade) Dose Ordered Sig/Rosa Route PRN Reason Start Time Stop Time Status Last Admin Dose Admin Acetaminophen (Tylenol) 650 mg Q4H PRN ORAL fever 05/11/18 07:15 06/10/18 07:14 Dextrose (Dextrose 50%) 25 ml STAT PRN IV Hypoglycemia 05/11/18 07:15 06/10/18 07:14 Dextrose (Dextrose 50%) 50 ml STAT PRN IV Hypoglycemia 05/11/18 08:30 06/10/18 08:29 Dextrose/Sodium Chloride 1,000 ml @ 50 mls/hr Q20H IV 05/12/18 13:30 06/11/18 13:29 05/13/18 08:15 Diphenhydramine HCl (Benadryl) 25 mg Q6H PRN ORAL Itching/Pruritis 05/11/18 07:15 06/10/18 07:14 Heparin Sodium (Porcine) (Heparin 5000 units/ml) 5,000 units EVERY 12 HOURS SUBQ 05/11/18 09:00 06/10/18 08:59 Lorazepam (Ativan 2mg/ml 1ml) 1 mg EVERY 4 HOURS PRN IV agitation 05/11/18 07:15 05/18/18 07:14 Morphine Sulfate (Morphine Sulfate) 2 mg EVERY 4 HOURS PRN IVP severe Pain (Pain Scale 7-10) 05/11/18 07:15 05/18/18 07:14 Nitroglycerin (Ntg) 0.4 mg Q5M X 3 DOSES PRN SL Prn Chest Pain 05/11/18 07:15 06/10/18 07:14 Ondansetron HCl (Zofran) 4 mg Q6H PRN IVP Nausea & Vomiting 05/11/18 07:15 06/10/18 07:14 Pantoprazole (Protonix) 40 mg DAILY IV 05/11/18 09:00 06/10/18 08:59 05/13/18 08:12 Piperacillin Sod/ Tazobactam Sod 3.375 gm/Dextrose 110 ml @ 27.5 mls/hr EVERY 8 HOURS IV 05/11/18 14:00 05/16/18 13:59 05/13/18 05:39 Polyethylene Glycol (Miralax) 17 gm HSPRN PRN ORAL Constipation 05/11/18 07:15 06/10/18 07:14 Polyethylene Glycol/ Electrolytes (Nulytely) 4,000 ml ONCE ONCE ORAL 05/14/18 14:00 05/14/18 14:01 Promethazine HCl 25 mg/Sodium Chloride 56 ml @ 110 mls/hr Q6H PRN IV Refractory N/V 05/11/18 10:00 06/10/18 09:59 Temazepam (Restoril) 15 mg HSPRN PRN ORAL Insomnia 05/11/18 21:00 05/18/18 20:59 Kobe Woodward M.D. May 13, 2018 08:24
--- NOTE | 2018-05-13 08:53 | General Progress Note ---
Assessment/Plan Problem List: (1) Abdominal pain ICD Codes: R10.9 - Unspecified abdominal pain SNOMED: 80749960 (2) UTI (urinary tract infection) ICD Codes: N39.0 - Urinary tract infection, site not specified SNOMED: 21227259 (3) Groin rash ICD Codes: R21 - Rash and other nonspecific skin eruption SNOMED: 929111387, 782257516 (4) Acute colitis ICD Codes: K52.9 - Noninfective gastroenteritis and colitis, unspecified SNOMED: 70208840, 415778708 (5) Diverticulitis ICD Codes: K57.92 - Diverticulitis of intestine, part unspecified, without perforation or abscess without bleeding SNOMED: 252337946 Status: stable, progressing Assessment/Plan abx per id gi eval pain control cbc bmp am Subjective Constitutional: Reports: weakness Allergies: Coded Allergies: No Known Allergies (Unverified , 05/10/18) All Systems: reviewed and negative except above Subjective sl r abd pain Objective Last 24 Hour Vital Signs Date Time Temp Pulse Resp B/P (MAP) Pulse Ox O2 Delivery O2 Flow Rate FiO2 05/13/18 08:00 98.8 97 20 112/73 (86) 98 98.8 05/13/18 04:00 98.6 90 19 133/78 (96) 99 98.6 05/13/18 00:00 98.4 68 19 101/56 (71) 99 98.4 05/12/18 21:00 Room Air 05/12/18 20:00 97.2 80 19 108/77 (87) 96 97.2 05/12/18 16:00 98.7 80 20 119/76 (90) 97 98.7 05/12/18 12:00 98.7 80 18 127/82 (97) 98 98.7 Intake and Output 05/12/18 05/13/18 19:00 07:00 Intake Total 160 ml 637.5 ml Balance 160 ml 637.5 ml Intake Oral 250 ml IV Total 160 ml 387.5 ml # Voids 3 1 # Bowel Movements 1 Laboratory Tests 05/13/18 05:35: White Blood Count 6.9, Red Blood Count 4.49L, Hemoglobin 14.5, Hematocrit 40.7L , Mean Corpuscular Volume 91, Mean Corpuscular Hemoglobin 32.3H, Mean Corpuscular Hemoglobin Concent 35.6, Red Cell Distribution Width 10.2L, Platelet Count 203, Mean Platelet Volume 5.9L, Neutrophils (%) (Auto) 76.4H, Lymphocytes (%) (Auto) 9.4L, Monocytes (%) (Auto) 9.8, Eosinophils (%) (Auto) 3.7H, Basophils (%) (Auto) 0.7, Sodium Level 140, Potassium Level 3.5, Chloride Level 106, Carbon Dioxide Level 28, Anion Gap 6, Blood Urea Nitrogen 4L, Creatinine 1.0, Estimat Glomerular Filtration Rate > 60, Glucose Level 117H, Calcium Level 9.0 Height (Feet): 5 Height (Inches): 4.00 Weight (Pounds): 122 General Appearance: alert EENT: normal ENT inspection Neck: normal alignment Cardiovascular: normal peripheral pulses, normal rate, regular rhythm Respiratory/Chest: chest wall non-tender, lungs clear, normal breath sounds Abdomen: normal bowel sounds, non tender, soft Extremities: normal inspection Edema: no edema noted Arm (L), no edema noted Arm (R), no edema noted Leg (L), no edema noted Leg (R), no edema noted Pedal (L), no edema noted Pedal (R), no edema noted Generalized Neurologic: responsive, motor weakness Skin: normal pigmentation, warm/dry Objective sl b/l inguinal punctate rash Jose D Shanks DO May 13, 2018 08:53
--- NOTE | 2018-05-13 11:54 | General Surgery Progress Note ---
General Surgery-Progress Note Subjective Symptoms: improved, pain absent, tolerating diet, passing flatus, BM Additional Comments minimal Right sided abd pain. no n/v/f/c. tolerating diet. ambulatory. + flatus. normal BM. wants to go home. Objective Last 24 Hour Vital Signs Date Time Temp Pulse Resp B/P (MAP) Pulse Ox O2 Delivery O2 Flow Rate FiO2 05/13/18 09:00 Room Air 05/13/18 08:00 98.8 97 20 112/73 (86) 98 98.8 05/13/18 04:00 98.6 90 19 133/78 (96) 99 98.6 05/13/18 00:00 98.4 68 19 101/56 (71) 99 98.4 05/12/18 21:00 Room Air 05/12/18 20:00 97.2 80 19 108/77 (87) 96 97.2 05/12/18 16:00 98.7 80 20 119/76 (90) 97 98.7 05/12/18 12:00 98.7 80 18 127/82 (97) 98 98.7 I&O Intake and Output 05/12/18 05/13/18 19:00 07:00 Intake Total 160 ml 637.5 ml Balance 160 ml 637.5 ml Intake Oral 250 ml IV Total 160 ml 387.5 ml # Voids 3 1 # Bowel Movements 1 Drains: none Cardiovascular: RSR Respiratory: clear Abdomen: soft, flat, non-tender, present bowel sounds Extremities: no edema, no tenderness, no cyanosis Laboratory Tests Test 05/13/18 05:35 White Blood Count 6.9 K/UL (4.8-10.8) Red Blood Count 4.49 M/UL (4.70-6.10) L Hemoglobin 14.5 G/DL (14.2-18.0) Hematocrit 40.7 % (42.0-52.0) L Mean Corpuscular Volume 91 FL (80-99) Mean Corpuscular Hemoglobin 32.3 PG (27.0-31.0) H Mean Corpuscular Hemoglobin Concent 35.6 G/DL (32.0-36.0) Red Cell Distribution Width 10.2 % (11.6-14.8) L Platelet Count 203 K/UL (150-450) Mean Platelet Volume 5.9 FL (6.5-10.1) L Neutrophils (%) (Auto) 76.4 % (45.0-75.0) H Lymphocytes (%) (Auto) 9.4 % (20.0-45.0) L Monocytes (%) (Auto) 9.8 % (1.0-10.0) Eosinophils (%) (Auto) 3.7 % (0.0-3.0) H Basophils (%) (Auto) 0.7 % (0.0-2.0) Sodium Level 140 MMOL/L (136-145) Potassium Level 3.5 MMOL/L (3.5-5.1) Chloride Level 106 MMOL/L (98-107) Carbon Dioxide Level 28 MMOL/L (21-32) Anion Gap 6 mmol/L (5-15) Blood Urea Nitrogen 4 mg/dL (7-18) L Creatinine 1.0 MG/DL (0.55-1.30) Estimat Glomerular Filtration Rate > 60 mL/min (>60) Glucose Level 117 MG/DL (74-106) H Calcium Level 9.0 MG/DL (8.5-10.1) Plan Problems: (1) Acute colitis Assessment & Plan: 62M Acute Right sided Colitis. Afebrile, HD stable, labs okay. Exam with right sided abdominal pain, rebound, guarding. CT reviewed and though uncomplicated the extent of colitis is concerning for right sided colitis. possible mass? given exam and CT findings patient should be kept npo with iv fluids and iv abx. need to ensure exam improves and pain resolves prior to starting a diet. improving with IV abx. pain resolving. tolerating diet. labs improved. C diff negative. CEA normal advance diet as tolerated IV Abx will follow with serial exams colonoscopy Tuesday thank you for this consultation . will follow with recs. Carlos Demarco May 13, 2018 11:54
--- NOTE | 2018-05-13 12:48 | General Progress Note ---
Assessment/Plan Assessment/Plan Assessment (1) Chronic bronchitis ICD Codes: J42 - Unspecified chronic bronchitis SNOMED: [id number] (2) colitis (3) ASD (atrial septal defect) ICD Codes: Q21.1 - Atrial septal defect Assessment/Plan abx pain control stool studies advance diet plan colonoscopy on Tuesday Subjective Allergies: Coded Allergies: No Known Allergies (Unverified , 05/10/18) Subjective Feels OK tolerating PO no abd pain Objective Last 24 Hour Vital Signs Date Time Temp Pulse Resp B/P (MAP) Pulse Ox O2 Delivery O2 Flow Rate FiO2 05/13/18 09:00 Room Air 05/13/18 08:00 98.8 97 20 112/73 (86) 98 98.8 05/13/18 04:00 98.6 90 19 133/78 (96) 99 98.6 05/13/18 00:00 98.4 68 19 101/56 (71) 99 98.4 05/12/18 21:00 Room Air 05/12/18 20:00 97.2 80 19 108/77 (87) 96 97.2 05/12/18 16:00 98.7 80 20 119/76 (90) 97 98.7 Intake and Output 05/12/18 05/13/18 19:00 07:00 Intake Total 160 ml 637.5 ml Balance 160 ml 637.5 ml Intake Oral 250 ml IV Total 160 ml 387.5 ml # Voids 3 1 # Bowel Movements 1 Laboratory Tests 05/13/18 05:35: White Blood Count 6.9, Red Blood Count 4.49L, Hemoglobin 14.5, Hematocrit 40.7L , Mean Corpuscular Volume 91, Mean Corpuscular Hemoglobin 32.3H, Mean Corpuscular Hemoglobin Concent 35.6, Red Cell Distribution Width 10.2L, Platelet Count 203, Mean Platelet Volume 5.9L, Neutrophils (%) (Auto) 76.4H, Lymphocytes (%) (Auto) 9.4L, Monocytes (%) (Auto) 9.8, Eosinophils (%) (Auto) 3.7H, Basophils (%) (Auto) 0.7, Sodium Level 140, Potassium Level 3.5, Chloride Level 106, Carbon Dioxide Level 28, Anion Gap 6, Blood Urea Nitrogen 4L, Creatinine 1.0, Estimat Glomerular Filtration Rate > 60, Glucose Level 117H, Calcium Level 9.0 Height (Feet): 5 Height (Inches): 4.00 Weight (Pounds): 122 Objective WDWN man NCAT supple CTA RR Soft ND NT no edema Nisa Wheeler MD May 13, 2018 12:48
[2018-05-13] MEDS ORDERED: D5 1/2NS 1000ml IV ONE (12:59)
[2018-05-13] MEDS ORDERED: CIPRO500 MG/51 PO (13:03)
[2018-05-14] MEDS ORDERED: Nulytely 4L ORAL ONE (14:00)
--- NOTE | 2018-05-14 14:24 | Discharge Summary ---
Discharge Summary Discharge Summary _ DATE OF ADMISSION: 05/10/2018 DATE OF DISCHARGE:05/13/2018 REASON FOR ADMISSION: 62 years old male with past medical history significant for ASD repair, COPD/ chronic bronchitis, presented with 3 days of lower abdominal pain, diarrhea and nausea but no vomiting. Pain was more localized in the right lower quadrant and nonradiating. Initially it was thought to be diverticulitis , and patient was treated with antibiotics: Augmentin and Flagyl. However, pain continued despite treatment, and appeared constant and worsened. Patient felt nauseated and with lack of appetite. He also felt feverish. Patient took Advil which helped his pain somehow. Patient seen earlier by his own doctor and was given dose of Rocephin and gentamicin earlier on. The doctor performed ultrasound which showed that the patient allegedly had appendicitis. WBC was 11. Patient was sent for evaluation. Patient had colonoscopy done 6 years ago, unremarkable . Vital signs reveal low grade fever and tachycardia. Pulse oximetry was stable on room air Laboratory workup revealed no leukocytosis ,stable hemoglobin and hematocrit. Stable electrolytes and renal parameters. Stable LFT and lipase. Urinalysis without evidence of UTI. Chest x-ray revealed cardiomegaly , but no definite acute process. CT of the abdomen and pelvis revealed wall thickening of the proximal ascending colon and possibly the terminal ileum, possibly indicating inflammatory colitis, either infectious or noninfectious or diverticulitis due to occult diverticulum. actively Finding could also represent colonic neoplasm. Patient admitted with diagnosis of abdominal pain, possible colitis versus diverticulitis, COPD, atrial septal defect CONSULTANTS: pulmonary Dr. Lobo ID specialist Dr. Elliott GI specialist [facility] COURSE: Patient admitted. Patient initially kept nothing by mouth. Patient started on IV fluids. Pain management was addressed. Stool for C. difficile was negative. GI and ID specialists closely followed. Patient was on empiric antibiotics. Mild leukocytosis, present as outpatient, and pain responded to IV antibiotics. Patient was on IV antibiotics as per ID recommendations and switched to oral antibiotics upon discharge to complete the course. GI specialist closely followed. Abdominal ultrasound was negative for gallstones or dilated ducts. No hydronephrosis. Diet slowly started and advanced as tolerated. Antiemetics were on board as needed Diarrhea stopped Patient was able to tolerate diet. Patient will need colonoscopy to rule out cancer .Colonoscopy can be done as an outpatient. Supplemental oxygen provided as needed to keep pulse oximetry above 92% . Pulmonary toilet provided as needed. Pulse oximetry was stable on room air. Antitussive provided as needed. DVT and GI prophylaxis provided. Patient symptomatically improved and was stable for discharge home. FINAL DIAGNOSES: abdominal pain possible diverticulitis possible colitis diarrhea -resolved COPD/ chronic bronchitis atrial septal defect , s/p repair DISCHARGE MEDICATIONS: See Medication Reconciliation list. DISCHARGE INSTRUCTIONS: Patient was discharges home. Patient to follow-up with dr Shanks within 1 week to schedule outpatient colonoscopy . Strict return to ED precautions reinforced. I have been assigned to dictate discharge summary for this account. I was not involved in the patient's management. Ghazala Kelley NP May 14, 2018 14:24
== END 2018-05-13 13:00 | disposition home or self-care (01) | DRG 392 ==
LOC: EMR 18:08 → 4E 18:12 → EDBEDREQ 22:04 → 4E 23:12
DX: R10.9 Unspecified abdominal pain (principal); K57.92 Diverticulitis of intestine, part unspecified, without perforation or abscess without bleeding; K52.9 Noninfective gastroenteritis and colitis, unspecified; J42 Unspecified chronic bronchitis; R21 Rash and other nonspecific skin eruption
CPT/HCPCS: 36415; 71045; 74177; 76700; 80048; 80053; 81003; 82150; 82378; 83690; 84484; 85025; 85610; 85730; 86850; 86900; 86901; 87045; 87324; 93005